=== PATIENT | female | born 1975 | race Caucasian/White ===

== ENCOUNTER 2025-04-09 07:53 | Emergency (ER) | payer BC, SELFPAY ==
[2025-04-09 07:54] VITALS: BP 160/97
--- NOTE | 2025-04-09 08:21 | ED.GENMED ---
History of Present Illness
General
Chief Complaint: Abdominal Pain
Source: patient
Time Seen by Provider: 04/09/25 08:01
History of Present Illness
History of Present Illness:
49-year-old female with past medical history of ulcerative colitis and pancreatitis, UC managed on mesalamine, presenting to the emergency department for evaluation of 2 weeks of generalized abdominal pain, worse within the upper abdomen, describes
a waxing and waning sensation lasting simply 5 minutes and coming every 30 minutes or so and accompanied with bouts of loose stool but none over the last 2 to 3 days. Patient states that she is been in a minor UC flare for approximately 2 years,
will have bleeding with bowel movements but states the bleed with the symptoms is less than usual. She denies any fevers, chills, rigors, current nausea or vomiting, urinary symptoms or any other concerns. She did contact her GI physician but was
unable to be given an appointment until April, they had discussed obtaining an ultrasound of the liver/gallbladder to evaluate for further pathologies. Patient did state that eating will sometimes make the symptoms slightly worse.
Past History
Past History
ED Past Medical History: Other (Ulcerative colitis, pancreatitis)
ED Past Surgical History:
Social History
Tobacco: Former smoker
Alcohol: None
Drug: None
Personal:
Living: with family
Employment: Employed
Family History
Family History: Other
Review of Systems
Review of Systems
All Other Systems: ROS reviewed and negative except as documented in HPI and ROS
Phy Exam
Physical Exam
Physical Exam:
GENERAL: Alert , in no apparent distress
EYE: clear conjunctiva b/l
HEAD: NCAT
ENT: o/p clr, mmm.
CARDIAC: Borderline tachycardic rate, regular rhythm
LUNGS: Clear breath sounds bilaterally, no acute respiratory distress, no wheezes/rales/rhonchi
ABDOMEN: Hyperactive bowel sounds soft, without focal tenderness, no r/g, no cvat
NEUROLOGICAL: Alert and oriented
SKIN: Warm and dry, skin intact.
MUSCULOSKELETAL: No edema, well perfused.
PSYCH: Normal and appropriate interaction.
Scores
Heart Failure Risk
Heart Failure Risk Score: Not Applicable
Heart Score for Chest Pain Patients
STEMI patient?: Not applicable
Withdrawal Assessment of Alcohol
Withdrawal Assessment Completed?: Not applicable
Course
Orders/Labs/Results
Orders:
Orders
04/09/25 08:21
US Abdomen Complete/Upper Urgent
Comment:
Reason For Exam: abd pain
04/09/25 08:29
Complete Blood Count/With Diff Urgent
Comprehensive Metabolic Panel Urgent
Erythrocyte Sed Rate Urgent
Comment: ADD ON
Lipase Urgent
04/09/25 08:49
Urinalysis Reflex To Culture Urgent
Date Specimen was Collected: 04/09/25
Time Specimen was Collected: 08:48
Urine Microscopic Reflex Cult Urgent
Urine Culture Urgent
DENT[place] Source: U
Specimen Description:
Obtained by: Random
Date Specimen was Collected: 04/09/25
Time Specimen was Collected: 08:48
04/09/25 09:01
Add On- LAB Urgent
Tests Added?: ESR/CRP
Abnormal Lab Results
04/09/25 04/09/25
08:29 08:49
RBC 3.89 L 10^6/uL
(4.20-5.40)
Hct 35.9 L %
(37.0-47.0)
MCH 32.4 H pg
(27.0-31.0)
MPV 10.5 H fL
(7.4-10.4)
Absolute Lymphs (auto) 1.1 L 10^3/uL
(1.2-3.4)
Absolute Monos (auto) 0.8 H 10^3/uL
(0.1-0.6)
Lymphocytes % 16.1 L %
(20.5-51.1)
Monocytes % 10.7 H %
(1.7-9.3)
Creatinine 0.5 L mg/dL
(0.6-1.0)
Glucose 110 H mg/dl
(70-99)
Lipase 19 L U/L
(23-300)
Urine Ketones 3+ A
(Negative)
Ur Occult Blood Reflex 1+ A
(Negative)
Leukocyte Esterase Rfl 1+ A
(Negative)
Urine RBC 3-6 A /HPF
(0-2)
Urine Bacteria (Reflex) Many A
(Negative)
Urine Albumin (Reflex) 2+ A
(Neg - Trace)
04/09/25 08:29
04/09/25 08:29
Vital Signs
Initial and Last Documented VS:
Initial Vital Signs
Temp Pulse Resp BP Pulse Ox
98.4 F 117 18 160/97 99
04/09/25 07:54 04/09/25 07:54 04/09/25 07:54 04/09/25 07:54 04/09/25 07:54
Last Documented Vital Signs
Temp Pulse Resp BP Pulse Ox
98.4 F 87 18 123/77 100
04/09/25 08:34 04/09/25 08:34 04/09/25 07:54 04/09/25 08:24 04/09/25 08:30
MDM/Problems Addressed
Differential Diagnosis Includes:
GERD
Gastritis
Peptic ulcer disease
Duodenitis
H. pylori
Ulcerative colitis/Crohn's disease flare
Pancreatitis
Cholecystitis/symptomatic cholelithiasis
Appendicitis
MDM/Problems Addressed:
49-year-old female presenting to the emergency department for evaluation of GI upset that has been occurring over the last 2 weeks, no nausea or vomiting. Patient did note increased bowel movements, notes it is her baseline bloodiness for bowel
movements that is typical of her ulcerative colitis. No fevers. Denies any recent travel or recent antibiotics. Has an appointment with GI but not until April. Will check labs and at patient's request an ultrasound. Patient very hesitant to
get CT imaging as she notes she has had 2 CT scans in the past and is afraid of the radiation exposure. I did offer to have patient start an oral contrast while waiting for ultrasound given I am less suspicious ultrasound will yield any acute
pathologies however patient also would like to defer this as well. She declines anything for her symptoms presently.
*Radiology
Radiology exam reviewed: radiology read reviewed
*Pulse Oximetry
SaO2: 99
Oxygen Mode of Delivery: Room air
Patient hypoxic: no
*Critical Care Note
Total Time (30-74mins, 75-104mins- exclusive of procedures): Not Applicable
Patient Management
Escalation/DeEscalation of care consider admission/obs:
Patient's workup unrevealing. No signs of acute surgical abdomen. I did again offered CT imaging to the patient but she declines. She will follow-up with primary care provider and GI as she has scheduled. Aware of return precautions to the
emergency department.
ED Attending Note
-
Portions of this chart may have been created with voice recognition software.� Occasional wrong word or��sound alike� substitutions may have occurred due to the inherent limitations of voice recognition software.
Discharge Plan
Departure
Patient Disposition: Home (Routine Discharge)
Date of Disposition: 04/09/25
Time of Disposition: 11:18
Patient with high blood pressure during this ER visit?: Yes
Discharge Problem:
Abdominal pain
Instructions: Abdominal Pain
Prescriptions:
No Action
prenat.vits,naina,tpm-aqji-fwymh [ Vitamin] 1 TAB tablet
1 tab PO DAILY
docusate sodium [Stool Softener] 100 MG capsule
100 mg PO DAILY
acetaminophen-codeine 1 TABLET tablet
1 tab PO Q4HPRN PRN (Reason: pain) Qty: 30 0RF
lansoprazole [Prevacid] 30 mg capsule,delayed release(DR/EC)
30 mg PO DAILY 14 Days Qty: 14 0RF
Referrals:
Sada Cotto MD [Family Provider, Internal Medicine]
Interventions
Interventions:
*Risk Screen - Suicide Last Done: 04/09/25 07:54
*General Assessment Last Done: 04/09/25 07:54
*Neglect/Abuse Screening Last Done: 04/09/25 07:54
*ED- Fall Risk Assessment Last Done: 04/09/25 08:51
*ED COVID-19 Vaccine History Last Done: 04/09/25 08:51
*Nursing Disposition Last Done: 04/09/25 11:23
AR-Ngbwhn-Xvobjnxpvw Assessment Last Done: 04/09/25 08:34
Discharge Date and Time
Discharge Date/Time: 04/09/25 11:28
Print Language: MONTENEGRIN
[2025-04-09 08:24] VITALS: BP 123/77
[2025-04-09 08:49] LABS: Hematocrit 35.9 % (37.0-47.0); Hemoglobin 12.6 g/dL (12.0-16.0); Mean Corp Hgb Conc. 35.1 g/dL (33.0-37.0); Mean Corpuscular Volume 92.3 fL (81.0-99.0); Nucleated Red Blood Cells % 0 %; Platelet Count 234 10^3/uL (130-400); Red Cell Dist. Width 12.3 % (11.5-14.5)
[2025-04-09 08:58] LABS: Urine Character Slightly Cloudy (Clear)
[2025-04-09 09:04] LABS: Urine Squamous Cell >30 /LPF (Few)
[2025-04-09 09:05] LABS: ALT (SGPT) 13 U/L (0-35); AST (SGOT) 14 U/L (14-36); Albumin 4.5 g/dl (3.5-5.0); Alkaline Phosphatase 71 U/L (38-126); Blood Urea Nitrogen 14 mg/dl (7-17); Calcium 9.9 mg/dl (8.4-10.2); Carbon Dioxide 26 mmol/L (22-30); Chloride 105 mmol/L (98-107); Estimated Creatinine Clearance 102 ml/min; Glucose 110 mg/dl (70-99); Lipase 19 U/L (23-300); Potassium 4.4 mmol/L (3.5-5.1); Sodium 139 mmol/L (135-145); Total Protein 7.4 g/dl (6.3-8.2); eGFR > 60.00
== END 2025-04-09 11:28 | disposition home or self-care (01) ==
LOC: EMR 07:53
PROVIDERS: Physician Assistant Medical; EMERGENCY PHYSICIAN Emergency Medicine; FAMILY PHYSICIAN Internal Medicine
DX: R10.84 Generalized abdominal pain (principal); K51.90 Ulcerative colitis, unspecified, without complications; Z87.19 Personal history of other diseases of the digestive system; Z87.891 Personal history of nicotine dependence
CPT/HCPCS: 99284; 76700; 80053; 81003; 81015; 83690; 85025; 85652; 87086

== ENCOUNTER 2025-05-02 13:45 | Inpatient (IN) | payer BC, SELFPAY ==
[2025-04-30] VITALS (9 sets, daily range): BP systolic 105–150; BP diastolic 61–88; BMI 18.8; BMI 18.1
[2025-04-30 13:22] LABS: Hematocrit 35.2 % (37.0-47.0); Hemoglobin 11.4 g/dL (12.0-16.0); Mean Corp Hgb Conc. 32.4 g/dL (33.0-37.0); Mean Corpuscular Volume 96.7 fL (81.0-99.0); Nucleated Red Blood Cells % 0 %; Platelet Count 279 10^3/uL (130-400); Red Cell Dist. Width 13.3 % (11.5-14.5)
[2025-04-30 13:46] LABS: Urine Character Clear (Clear)
[2025-04-30 13:46] LABS: ALT (SGPT) 12 U/L (0-35); AST (SGOT) 14 U/L (14-36); Albumin 4.3 g/dl (3.5-5.0); Alkaline Phosphatase 74 U/L (38-126); Blood Urea Nitrogen 11 mg/dl (7-17); Calcium 9.4 mg/dl (8.4-10.2); Carbon Dioxide 26 mmol/L (22-30); Chloride 102 mmol/L (98-107); Glucose 96 mg/dl (70-99); Lipase 15 U/L (23-300); Potassium 4.3 mmol/L (3.5-5.1); Sodium 136 mmol/L (135-145); eGFR > 60.00
[2025-04-30 13:51] LABS: Total Protein 7.0 g/dl (6.3-8.2)
--- NOTE | 2025-04-30 15:12 | ED.GENMED ---
History of Present Illness
General
Chief Complaint: Abdominal Pain
Source: patient
Time Seen by Provider: 04/30/25 14:49
History of Present Illness
History of Present Illness:
49-year-old female presents to the emergency room complaining of abdominal pain and cramping which has been present for the past 5 weeks. Patient was seen here in the emergency room and had an ultrasound to rule out cholecystitis. Evidently the
ultrasound was okay. Patient followed up with her product management analyst who recommended ultimately she come to emergency room. She had stool cultures which were negative as an outpatient. She evidently had an MRCP as an outpatient as well.
Past History
Past History
ED Past Medical History: Other (Ulcerative colitis, pancreatitis)
ED Past Surgical History:
Social History
Tobacco: Former smoker
Alcohol: None
Drug: None
Personal:
Living: with family
Employment: Employed
Family History
Family History: Other
Phy Exam
Physical Exam
Physical Exam:
General: Awake, Alert, Oriented X3. No acute distress.
Vitals: unremarkable
Head: Atraumatic
Eyes: Pupils equal, EOMI
Throat: Airway intact, no exudates
Neck: Trachea midline
Lungs: Clear and equal b/l
Heart: Regular rate, no murmurs
Abd: Soft, Nontender, No pulsatile mass
Neuro: Nonfocal
Skin: Warm, dry, no rash
Extremities: pulses equal b/l, no edema
Course
Orders/Labs/Results
Orders:
Orders
04/30/25 12:57
Complete Blood Count/With Diff Urgent
Comprehensive Metabolic Panel Urgent
Lipase Urgent
04/30/25 13:03
Urinalysis Reflex To Culture Urgent
Date Specimen was Collected: 04/30/25
Time Specimen was Collected: 12:46
04/30/25 15:12
CT Abd/pel W Iv And Oral Contr Urgent
Comment:
Reason For Exam: abdominal pain,
Iohexol [Omnipaque] See Protocol PO NOW STA
04/30/25 19:32
CDIFF [C difficile Antigen & Toxins] Urgent
DENTON Source: Feces/Stool
Specimen Description:
Stool Culture Urgent
DENTON Source: Feces/Stool
Specimen Description:
04/30/25 20:01
Admit/Transfer Patient As Directed
Co-Sign Provider:
Level of Care: Observation services
Assign to:: Medical/Surgical
Physician / Group: Sun
Diagnosis: inflammatory bowel disease
PRN Pain Medication Management As Directed
May give lesser potent ordered pain med per pt: Yes
preference::
Protocol:: Medication orders for pain may be administered in a
manner that supports deferring to patient preference
when the pt is:
- Requesting an ordered lesser potent pain medication.
Least to most potent pain medications are defined
as: acetaminophen < NSAID < tramadol < opioids
(morphine, oxycodone, hydromorphone).
- Requesting a lesser dose of the same medication IF
ORDERED.
- Requesting a less intrusive route of administration
if both routes are prescribed by the provider (PO <
IV).
04/30/25 20:02
Code Status As Directed
Resuscitation Status: Full Code
Abnormal Lab Results
04/30/25 04/30/25
12:57 13:03
RBC 3.64 L 10^6/uL
(4.20-5.40)
Hgb 11.4 L g/dL
(12.0-16.0)
Hct 35.2 L %
(37.0-47.0)
MCH 31.3 H pg
(27.0-31.0)
MCHC 32.4 L g/dL
(33.0-37.0)
Absolute Monos (auto) 1.1 H 10^3/uL
(0.1-0.6)
Lymphocytes % 18.0 L %
(20.5-51.1)
Monocytes % 11.9 H %
(1.7-9.3)
Creatinine 0.4 L mg/dL
(0.6-1.0)
Lipase 15 L U/L
(23-300)
Urine Ketones 3+ A
(Negative)
04/30/25 12:57
04/30/25 12:57
Vital Signs
Initial and Last Documented VS:
Initial Vital Signs
Temp Pulse Resp BP Pulse Ox
97.4 F 113 18 150/88 99
04/30/25 12:42 04/30/25 12:42 04/30/25 12:42 04/30/25 12:42 04/30/25 12:42
Last Documented Vital Signs
Temp Pulse Resp BP Pulse Ox
98.6 F 75 16 107/61 100
04/30/25 14:26 04/30/25 16:17 04/30/25 16:17 04/30/25 16:17 04/30/25 16:17
MDM/Problems Addressed
Differential Diagnosis Includes:
Ulcerative colitis, diverticulitis, intestinal colic
MDM/Problems Addressed:
Patient presents with crampy abdominal pain has been ongoing for quite some time. Her abdominal exam shows some tenderness but not a surgical abdomen. Labs are reviewed and are essentially normal. CT of the abdomen pelvis obtained with IV and
oral contrast. She has pancolitis. Communicated with her gastroenterology group cannot get her in to the office sooner than her scheduled appointment in a couple weeks. They recommend against starting steroids empirically. Will hospitalize the
patient for symptom control, further GI evaluation
*Radiology
Radiology exam reviewed: radiology read reviewed
*Pulse Oximetry
SaO2: 100
Oxygen Mode of Delivery: Room air
Patient hypoxic: no
*Critical Care Note
Total Time (30-74mins, 75-104mins- exclusive of procedures): Not Applicable
ED Attending Note
-
Portions of this chart may have been created with voice recognition software.� Occasional wrong word or��sound alike� substitutions may have occurred due to the inherent limitations of voice recognition software.
Discharge Plan
Departure
Patient Disposition: Admit
Date of Disposition: 04/30/25
Time of Disposition: 19:31
Admit to: Med/Surg
Presentation/result/management discussed w/ accepting MD/DO: Hospitalist
Condition: Fair
Discharge Problem:
Pancolitis
Prescriptions:
No Action
acetaminophen-codeine 1 TABLET tablet
1 tab PO Q4HPRN PRN (Reason: pain) Qty: 30 0RF
lansoprazole [Prevacid] 30 mg capsule,delayed release(DR/EC)
30 mg PO DAILY 14 Days Qty: 14 0RF
mesalamine 1,000 mg suppository
1,000 mg FL DAILY
Referrals:
Sada Cotto MD [Family Provider, Internal Medicine]
Interventions
Interventions:
*Risk Screen - Suicide Last Done: 04/30/25 12:46
*General Assessment Last Done: 04/30/25 14:26
*Neglect/Abuse Screening Last Done: 04/30/25 12:46
*ED- Fall Risk Assessment Last Done: 04/30/25 14:26
*ED COVID-19 Vaccine History Last Done: 04/30/25 14:26
*ED Influenza Vaccine History Last Done: 04/30/25 14:26
DK-Flyksj-Ejjgdrwnen Assessment Last Done: 04/30/25 14:26
Discharge Date and Time
Print Language: HEBREW
[2025-04-30] MEDS: OMNIPAQUE 50 ML PO (15:29)
--- NOTE | 2025-04-30 19:35 | HPS.HSE ---
Family Physician
-
Family Physician: Sada Cotto
Chief Complaint
-
Abdominal pain
History of Present Illness
This is a 49 y.o female with past medical history of ulcerative proctatitis & iron deficiency presents with abdominal pain.
She reports diagnosis of prostatitis several years ago. She reports that she has ulcerative disease that was only limited to the rectal wall segment and has stayed the for many years. She reported that she had a colonoscopy in the beginning of the
year which showed the same localized disease. She also had flexible sigmoidoscopy in January which also shows localized disease. She has been followed by the [facility].
Patient reported having since her March she has had symptoms are consistent with worsening disease including frequent loose stools up to about 20 times a day although the frequency has now decreased. Crampy abdominal pain. Hematochezia. Mild
nausea. She denies having fevers or chills. She has no sick contacts. Patient reports that she takes mesalamine suppository has only medication and there is suggestion of increasing this dose recently.
Patient did have stool analysis on April 10 which was negative for any infectious process including negative cultures, ova and parasite, negative PCR, but did have markedly elevated fecal calprotectin to over 6000 which was different from her
prior studies with a fecal calprotectin was around 600. She reported that due to ongoing abdominal discomfort and bloody stooling she reached out to her safe deposit clerk to see if she could start on new medications. However she is required to
have another colonoscopy before they can start her medications and she believes that she cannot get an appointment within the next month so she was requested to come to the emergency department for evaluation.
In the emergency department she was afebrile, blood pressure was 107/61, pulse of 75, temp of 98.6. Oxygen saturation of 100%.
CBC was unremarkable. Her electrolytes BUN and creatinine were normal. At FTs were normal lipase was normal. UA was unremarkable.
CT of the abdomen pelvis shows a moderate wall thickening oriented focus: In the descending colon suggestive of colitis.
Medical History
Past Medical History
Past Medical History: Reports Other (Ulcerative proctitis)
Past Surgical History: Reports and Gynocological (uterine metroplasty)
Social History
Tobacco: Non-smoker
Alcohol: None
Drug: None
Personal:
Living: With Family
Family History
Family History: Not pertinent
Allergies / Home Medications
Allergies reflects when Allergies were last updated in [employer].
Home Medications with original date entered in [employer]
Allergy/Medication List:
Allergies
Allergy/AdvReac Type Severity Reaction Status Date / Time
Sulfa (Sulfonamide Allergy Hives Verified 04/30/25 12:45
Antibiotics)
Home Medications
mesalamine 1,000 mg rectal suppository 1,000 mg CA DAILY 04/30/25
Review of Systems
-
Constitutional: Reports No Symptoms
EENT: Reports No Symptoms
Respiratory: Reports No Symptoms
Cardiac: Reports No Symptoms
Abdomen/GI: Reports Abdominal Pain
: Reports No Symptoms
Musculoskeletal: Reports No Symptoms
Skin: Reports No Symptoms
Neurological: Reports No Symptoms
Endocrine: Reports No Symptoms
Hematologic/Lymphatic: Reports No Symptoms
Psych: Reports No Symptoms
Physical Exam
Vital Signs
Vital Signs
Temp Pulse Resp BP Pulse Ox
98.6 F 75 16 107/61 100
04/30/25 14:26 04/30/25 16:17 04/30/25 16:17 04/30/25 16:17 04/30/25 16:17
Physical Exam
General: Well Developed, Well Nourished and No Apparent Distress
HEENT: NormoCephalic, Moist mucous membranes and Atraumatic
Respiratory: Clear
Cardiac: S1/S2 and Regular Rhythm; No Murmur or Rub
GI: Soft, Non Tender, Non Distended and Normal Bowel Sounds; No Organomegaly
Rectal: Deferred by Provider
Musculoskeletal: No Clubbing, No Cyanosis and No Edema
Skin: No Rash
Neuro: Nonfocal/grossly intact
Laboratory Results
-
04/30/25 12:57
04/30/25 12:57
Laboratory Results
Total Bilirubin 0.7 mg/dl (0.2-1.3) 04/30/25 12:57
AST 14 U/L (14-36) 04/30/25 12:57
ALT 12 U/L (0-35) 04/30/25 12:57
Alkaline Phosphatase 74 U/L (38-126) 04/30/25 12:57
Lipase 15 U/L (23-300) L 04/30/25 12:57
Data Reviewed
-
CT Scan: Report Reviewed by me
Lab Data: Labs Reviewed by me
Old Records: Reviewed
Impression/Plan
-
IMPRESSION:
49-year-old with past medical history significant for ulcerative proctitis presents to the emergency department with abdominal pain found to have a colitis involving the entire transverse and descending colon.
PLAN:
Acute colitis/pancolitis
-Admit to MedSurg observation
- Already had stool WBC, stool cultures, fecal calprotectin c/w ulcerative colitis, will not repeat as she shows no signs of new infection.
- Check CRP w/ am labs
-Pain control and IV fluids for now
-In the absence of signs of systemic infection we will hold off on antibiotics at this time
-Clear liquid diet after midnight
-GI consultation
DVT prophylaxis�Lovenox subcu
CODE STATUS�full code
--- NOTE | 2025-04-30 21:50 | PTCARENOTE ---
Recieved pt. from ED. Pt. ambulated from stretcher to bed. Pt. oriented to unit and call mathews placed within reach. Pt. care ongoing.
[2025-04-30] MEDS: ROWASA, CANASA SUPPOSITORY 1000 MG RECTAL (21:56)
[2025-04-30] MEDS: LR 1000 IV (22:08)
[2025-05-01 07:23] VITALS: BP 99/55
[2025-05-01 09:02] LABS: Hematocrit 31.5 % (37.0-47.0); Hemoglobin 10.7 g/dL (12.0-16.0); Mean Corp Hgb Conc. 34.0 g/dL (33.0-37.0); Mean Corpuscular Volume 92.4 fL (81.0-99.0); Platelet Count 265 10^3/uL (130-400); Red Cell Dist. Width 13.3 % (11.5-14.5)
[2025-05-01 09:32] LABS: Blood Urea Nitrogen 7 mg/dl (7-17); Calcium 9.0 mg/dl (8.4-10.2); Carbon Dioxide 21 mmol/L (22-30); Chloride 107 mmol/L (98-107); Estimated Creatinine Clearance 93 ml/min; Glucose 78 mg/dl (70-99); Potassium 4.2 mmol/L (3.5-5.1); Sodium 138 mmol/L (135-145); eGFR > 60.00
[2025-05-01 09:34] LABS: C-Reactive Protein < 5.00 mg/L (0.0-10.00)
[2025-05-01] MEDS: SOLU-MEDROL PF 20 MG IV ×2 (13:33→21:28)
[2025-05-01] MEDS: NSS 1000 IV (13:33)
--- NOTE | 2025-05-01 14:02 | W.PN.HOSP.TC ---
Addendum entered and electronically signed by Kj Smith DO 05/10/25 11:17:
Additional diagnosis:
Severe Protein Calorie Malnutrition
Original Note:
Today's Communication/Plan
-
Assessment / Plan
Assessment / Plan
General: No Apparent Distress, Comfortable and Conversant
HEENT: NormoCephalic, Moist mucous membranes, Atraumatic
Respiratory: Clear and Non Labored Respirations
Cardiac: S1/S2 and Regular Rhythm; No Rub or Gallop
GI: Soft, mild left-sided TTP, Non Distended and Normal Bowel Sounds
Musculoskeletal: No Edema, no deformity
Skin: Warm and dry
: NO Larson
Neuro: Awake, Alert, Nonfocal/grossly intact
Psych: Calm and Intact Judgment/Insight
Ms. Martino is a 49-year-old female with a medical history of ulcerative colitis (mainly confined to the rectum) who presented with worsening abdominal pain and hematochezia. CT of her abdomen pelvis showed progression of her ulcerative colitis to
now include her descending and transverse colon. She has been admitted for further evaluation and management.
Acute flare of ulcerative colitis:
- Inflammation appears to advance to now include the descending and transverse colon, previously had been confined only to the rectum
- Continuing home mesalamine suppository
- GI following, started on IV steroids
- Will follow-up further GI recommendations
- Supportive care with pain control as needed
- Full liquid diet for now
DVT prophylaxis: Lovenox
CODE STATUS: Full code
Anticipated Discharge: 24 - 48 hours
Subjective/Interval History
-
Date of Service: May 01, 2025
Patient was seen and examined at bedside this morning. Abdominal pain currently well-controlled. Mesalamine suppository. Awaiting GI evaluation
Objective Data
-
Labs:
Laboratory Results
05/01/25
08:47
WBC 8.4
Hgb 10.7 L
Hct 31.5 L
Plt Count 265
Sodium 138
Potassium 4.2
Chloride 107
Carbon Dioxide 21 L
BUN 7
Creatinine 0.4 L
Glucose 78
Calcium 9.0
Vital Signs:
Vital Signs
Temp Pulse Resp BP Pulse Ox
98.0 F 77 18 99/55 99
05/01/25 07:23 05/01/25 07:23 05/01/25 07:23 05/01/25 07:23 05/01/25 07:23
I&O
04/30/25 05/01/25 05/02/25
06:59 06:59 06:59
Intake Total 225 / 225
Balance 225 / 225
Review of Systems
-
History Source: Patient
All other systems: Reviewed and negative
Physical Exam
-
General: No Apparent Distress
--- NOTE | 2025-05-01 14:20 | CON.GI ---
Consultation
-
Date/Time Consultation Requested: 05/01/2025
Date/Time Consultation Performed: 05/01/2025
Requesting Provider: Hospitalist
Performing Provider: Vikram TAYLOR
Reason for Consultation: UC
Medical History
Chief Complaint / HPI
Chief Complaint: Abdominal pain
History of Present Illness:
49-year-old female with history of ulcerative proctitis who follows with Dr. Cabrera on mesalamine is admitted to ED with abdominal pain. She claims she was diagnosed with ulcerative colitis for over 30 years but has been taking mainly edema as
needed and for the last 2 years she has been taking mesalamine suppositories. She had last colonoscopy July 2023 followed by sigmoidoscopy summer 2024 and was reassured that her disease has been confined locally. No prior use of oral steroids.
Patient has been having abdominal pain since March this year. Bowel movements inconsistent. Multiple loose to semiformed stool with blood tinge. No fever or chills.
She had stool testing done as outpatient with her primary GI-negative for infection. Stool calprotectin was over 6000. She was advised by her primary GI to go and get evaluated in the ED.
Her prior GI records from [facility] are not available for me to review.
Past Medical History
Past Surgical History:
Social History
Tobacco: Non-Smoker
Alcohol: None
Allergies / Home Medications
Allergy/AdvReac Type Severity Reaction Status Date / Time
Sulfa (Sulfonamide Allergy Hives Verified 04/30/25 12:45
Antibiotics)
�Medication �Instructions �Recorded
acetaminophen 300 mg-codeine 30 mg 1 tab PO Q4HPRN PRN pain #30 tabs 12/12/13
tablet
lansoprazole 30 mg capsule,delayed 30 mg PO DAILY 14 days #14 caps 12/22/22
release (Prevacid)
mesalamine 1,000 mg rectal 1,000 mg AK DAILY 04/30/25
suppository
Review of Systems
Vital Signs
Temp Pulse Resp BP Pulse Ox
98.0 F 77 18 99/55 99
05/01/25 07:23 05/01/25 07:23 05/01/25 07:23 05/01/25 07:23 05/01/25 07:23
Physical Exam
Exam
General: Well Developed and No Apparent Distress
Respiratory: Clear
Cardiac: S1/S2
GI: Soft, Non Tender and Non Distended
Neuro: AO x 3
Results
WBC 8.4 10^3/uL (4.8-10.8) 05/01/25 08:47
Hgb 10.7 g/dL (12.0-16.0) L 05/01/25 08:47
Hct 31.5 % (37.0-47.0) L 05/01/25 08:47
MCV 92.4 fL (81.0-99.0) 05/01/25 08:47
Plt Count 265 10^3/uL (130-400) 05/01/25 08:47
Absolute Neuts (auto) 6.1 10^3/uL (1.4-6.5) 04/30/25 12:57
Sodium 138 mmol/L (135-145) 05/01/25 08:47
Potassium 4.2 mmol/L (3.5-5.1) 05/01/25 08:47
Chloride 107 mmol/L (98-107) 05/01/25 08:47
Carbon Dioxide 21 mmol/L (22-30) L 05/01/25 08:47
BUN 7 mg/dl (7-17) 05/01/25 08:47
Creatinine 0.4 mg/dL (0.6-1.0) L 05/01/25 08:47
Calcium 9.0 mg/dl (8.4-10.2) 05/01/25 08:47
Total Bilirubin 0.7 mg/dl (0.2-1.3) 04/30/25 12:57
AST 14 U/L (14-36) 04/30/25 12:57
ALT 12 U/L (0-35) 04/30/25 12:57
Alkaline Phosphatase 74 U/L (38-126) 04/30/25 12:57
Lipase 15 U/L (23-300) L 04/30/25 12:57
Diagnostic Image Results:
CT abd /pel 04/30/2025 with IV and oral cont
Bowel loops are normal caliber. The terminal ileum and appendix are within normal limits. There is moderate wall thickening of the entire transverse colon and descending colon despite the presence of oral contrast. This suggests colitis. There are
mild similar findings in the sigmoid colon. Oral contrast has reached the rectum.
Moderate pancolitis
Prior GI Procedures:
EGD: Reports not available
Colonoscopy: Reports not available
Assessment / Plan
-
49-year-old female with history of ulcerative proctitis follows up with Dr. Cabrera at [facility] on mesalamine suppository admitted with abdominal pain.
Abdominal pain/frequent BM/elevated stool calprotectin (outpatient lab) /history of ulcerative proctitis /CT abdomen/pelvis showing moderate pancolitis
Normocytic anemia
plan
Outpatient stool studies negative for infection, CRP normal. No leukocytosis
Full liquid diet. Advance to low residual diet as tolerated
IV Solu-Medrol 20 mg 3 times daily.
If symptomatic improvement okay to switch to prednisolone 30 mg daily with 10 mg weekly taper.
DVT prophylaxis
Discussed benefits and risk of colonoscopy. Patient would like to discuss with her primary GI and will do as outpatient. Advised her to contact her primary GI after discharge for colonoscopy /optimal maintenance therapy.
Total Time Spent with Patient (in minutes): 55
-
-
Thank you for consultation and allowing me to participate in the patient's care. Please call the contracting executive GI physician during the after hours with any questions or concerns.
[2025-05-01 14:54] VITALS: BMI 18.1
[2025-05-01 15:17] VITALS: BP 105/66
[2025-05-01 16:17] VITALS: BP 105/66
[2025-05-01] MEDS: ROWASA, CANASA SUPPOSITORY 1000 MG RECTAL (21:28)
[2025-05-01 23:00] VITALS: BP 106/61
[2025-05-02] MEDS: SOLU-MEDROL PF 20 MG IV (05:06)
[2025-05-02 07:38] VITALS: BP 126/75
[2025-05-02 09:08] LABS: Hematocrit 35.2 % (37.0-47.0); Hemoglobin 11.7 g/dL (12.0-16.0); Mean Corp Hgb Conc. 33.2 g/dL (33.0-37.0); Mean Corpuscular Volume 94.6 fL (81.0-99.0); Nucleated Red Blood Cells % 0 %; Platelet Count 302 10^3/uL (130-400); Red Cell Dist. Width 13.3 % (11.5-14.5)
[2025-05-02 09:47] LABS: Blood Urea Nitrogen 8 mg/dl (7-17); Calcium 9.7 mg/dl (8.4-10.2); Carbon Dioxide 24 mmol/L (22-30); Chloride 103 mmol/L (98-107); Estimated Creatinine Clearance 93 ml/min; Glucose 193 mg/dl (70-99); Potassium 4.7 mmol/L (3.5-5.1); Sodium 135 mmol/L (135-145); eGFR > 60.00
--- NOTE | 2025-05-02 12:28 | W.DCSUMMARY ---
Discharge Summary
Discharge Data
Date of Admission: 04/30/25
Date of Discharge: 05/02/25
Total time spent discharging patient (in min): 40
-
Pending Results: No
Hospital Course
Ms. Martino is a 49-year-old female with a medical history of ulcerative colitis (mainly confined to the rectum) who presented with worsening abdominal pain and hematochezia. CT of her abdomen pelvis showed progression of her ulcerative colitis to
now include her descending and transverse colon. She was admitted for further evaluation and management.
She was evaluated by gastroenterology and started on a course of steroids with significant improvement. She was able to tolerate a low residue diet. Her hemoglobin has remained stable and her hematochezia has improved. She will be discharged to
home with a long steroid taper. She will need to follow-up with her primary bag checker for further management.
General: No Apparent Distress, Comfortable and Conversant
HEENT: NormoCephalic, Moist mucous membranes, Atraumatic
Respiratory: Clear and Non Labored Respirations
Cardiac: S1/S2 and Regular Rhythm; No Rub or Gallop
GI: Soft, mild left-sided TTP, Non Distended and Normal Bowel Sounds
Musculoskeletal: No Edema, no deformity
Skin: Warm and dry
: NO Larson
Neuro: Awake, Alert, Nonfocal/grossly intact
Psych: Calm and Intact Judgment/Insight
Discharge Plan
-
Patient Disposition: Home (Routine Discharge)
Discharge Diagnosis/Procedures: Acute ulcerative colitis flare
Activity Restrictions/Additional Instructions:
You were admitted for evaluation and management of an acute ulcerative colitis flare. You were started on steroids with significant improvement. You will be continued on a course of steroids with a long taper which can be managed in the outpatient
setting by your primary bag checker.
Referrals:
Sada Cotto MD [Family Provider, Internal Medicine]
Prescriptions:
New
prednisolone [Millipred] 5 mg tablet
See Rx Instructions .ROUTE .COMPLEX Qty: 420 0RF
Rx Instructions:
Take 30 mg daily for 7 days, then taper by 10 mg weekly until off; follow-up with your primary bag checker for further instructions
Continued
acetaminophen-codeine 1 TABLET tablet
1 tab PO Q4HPRN PRN (Reason: pain) Qty: 30 0RF
lansoprazole [Prevacid] 30 mg capsule,delayed release(DR/EC)
30 mg PO DAILY 14 Days Qty: 14 0RF
mesalamine 1,000 mg suppository
1,000 mg IA DAILY
Discharge Orders:
Discharge Patient (As Directed); Ordered 05/02/25
Ordered By: Kj Smith
Discharge Date and Time
Print Language: PASHTO
--- NOTE | 2025-05-02 12:33 | W.PN.GI.CBS2 ---
Today's Communication / Plan
-
Low residue diet
Follow-up with her primary GI doctor as outpatient
Assessment / Plan
-
49-year-old female with history of ulcerative proctitis follows up with Dr. Cabrera at [facility] on mesalamine suppository admitted with abdominal pain.
Abdominal pain/frequent BM/elevated stool calprotectin (outpatient lab) /history of ulcerative proctitis /CT abdomen/pelvis showing moderate pancolitis
Normocytic anemia
plan
Outpatient stool studies negative for infection, CRP normal. No leukocytosis
Advance to low residual diet as tolerated
IV Solu-Medrol 20 mg 3 times daily. okay to switch to prednisolone 30 mg daily with 10 mg weekly taper on discharge.
DVT prophylaxis
Discussed benefits and risk of colonoscopy. Patient would like to discuss with her primary GI and will do as outpatient. Advised her to contact her primary GI after discharge for colonoscopy /steroid taper / optimal maintenance therapy for UC .
will s/o
Total Time Spent with Patient (in minutes): 35
Subjective
Subjective
Date of Service: May 02, 2025
Tolerating liquid diet. Denies any abdominal pain. Denies any significant diarrhea
Objective
Data Reviewed
Laboratory Data:
Laboratory Results
05/02/25 08:49
05/02/25 08:49
Laboratory Results
Total Bilirubin 0.7 mg/dl (0.2-1.3) 04/30/25 12:57
AST 14 U/L (14-36) 04/30/25 12:57
ALT 12 U/L (0-35) 04/30/25 12:57
Alkaline Phosphatase 74 U/L (38-126) 04/30/25 12:57
Lipase 15 U/L (23-300) L 04/30/25 12:57
Vital Signs and I&O:
Vital Signs
Temp Pulse Resp BP Pulse Ox
97.4 F 79 18 126/75 99
05/02/25 07:38 05/02/25 07:38 05/02/25 07:38 05/02/25 07:38 05/02/25 07:38
I&O
05/01/25 05/02/25 05/03/25
06:59 06:59 06:59
Intake Total 225 / 225 1190 / 1190
Balance 225 / 225 1190 / 1190
Physical Exam
Physical Exam
GI: Soft, Non Distended and Non Tender
--- NOTE | 2025-05-02 13:18 | CM ---
Met with patient at bedside
Outpatient Observation Notice form completed @ 1310
Pharmacy verified: [facility] @ [address] [place] [address]
Lives w/ Life Partner; split level home; 1/2 bath lower level; upper level bath has tub w/ shower
PLOF: independent with ambulation, stairs, and ADLs; works director of housing; drives; No DME
NO history of SNF or Home Health utilization
Will drive self home
Plan: Discharge to home today; no needs
--- NOTE | 2025-05-03 16:32 | PN.CDI ---
CDI
- -
CDI:
Physician Documentation Request
Admit Date: 05/02/25 13:45
Dear Doctor Sarah,
Please review the following and provide your response in the progress notes.
Clinical Indicators:
Pt admitted for Acute flare of ulcerative colitis.
05/01 Registered Dietitian Note: 'Chart reviewed per BMI <19....
CBW (04/30) 115lb 9oz BMI 18.1 underwt/ht
Pt reports significant 15lb 13% weight loss x 1 month secondary to decreased ability to eat, increased frequency of loose stool.
Pt meets criteria for severe protein calorie malnutrition of chronic illness with >5% wt loss x >1month, prolonged poor intake prior to admit <75% x 1month. '
Based on the above information and your assessment, which of the following most accurately represents the patient's nutritional status?
Severe Protein Calorie Malnutrition
Other (please specify)
[place] Criteria (ACP Hospitalist 2017)
2 or more criteria must be present for either
non severe or severe malnutrition
Note that the criteria differs related to the
presence of an acute or chronic illness
Chronic Illness
Energy Intake Non Severe: <75% for >1 month
Severe: <75% for >1 month
Weight Loss Non Severe: 5% over 1 month
7.5% over 3 months
10% over 6 months
20% over 1 year
Severe: >5% over 1 month
>7.5% over 3 months
>10% over 6 months
>20% over 1 year
Body Fat Non Severe: Mild Loss
Severe: Severe Loss
Muscle Mass Non Severe: Mild Loss
Severe: Severe Loss
Fluid Accumulation Non Severe: Mild Accumulation
Severe: Moderate to severe
accumulation
Reduced Department Store Sales[employer] Strength Non Severe: N/A
Severe: Measurably reduced
Additional criteria that can be used to Determine if Mild or Moderate Malnutrition ([employer] Manual 2018)
Use of terms such as suspected, likely, concern for, or probable (associated with a specific diagnosis that is being evaluated, monitored, or treated as if it exists) are acceptable and can be coded in the inpatient setting, when documented at the
time of discharge.
Thank you,
Erendira Cotton RN, BSN
CDI Specialist
Emblem Text
Please use your independent medical judgment in providing your response.
== END 2025-05-02 14:36 | disposition home or self-care (01) | DRG 385 ==
LOC: 4 WEST ACU 13:45
PROVIDERS: Student in an Organized Health Care Education/Training Program; ADMITTING PHYSICIAN Internal Medicine; ATTENDING PHYSICIAN Internal Medicine; CONSULT PHYSICIAN Internal Medicine Gastroenterology; EMERGENCY PHYSICIAN Emergency Medicine; FAMILY PHYSICIAN Internal Medicine
DX: K51.911 Ulcerative colitis, unspecified with rectal bleeding (principal); E43 Unspecified severe protein-calorie malnutrition; Z68.1 Body mass index [BMI] 19.9 or less, adult; D64.9 Anemia, unspecified; Z87.891 Personal history of nicotine dependence; Z79.899 Other long term (current) drug therapy
CPT/HCPCS: 74177; 80048; 80053; 81003; 83690; 85025; 85027; 86140; 87045; 87046; 87324; 87427; 87449; 99284; Q9967